=== PATIENT | female | born 1950 | race Two or more races ===

== ENCOUNTER 2019-04-22 06:46 | Day surgery (SDC) | payer MEDICARE, OTHER ==
[2019-04-22] MEDS ORDERED: ONDANSETRON 4 MG INJ IV (08:00)
[2019-04-22] MEDS ORDERED: PROPOFOL 20 ML (08:37)
[2019-04-22] MEDS ORDERED: LIDOCAINE 2% (SDV) 5 ML INJ (08:38)
== END 2019-04-22 10:46 | disposition home or self-care (01) ==
LOC: GIL 06:46
DX: R19.4 Change in bowel habit (principal); K64.8 Other hemorrhoids; E03.9 Hypothyroidism, unspecified
CPT/HCPCS: 45385; 88305